=== PATIENT | female | born 1955 | race Caucasian/White ===

== ENCOUNTER → 2017-09-24 09:58 | Outpatient (CLI) | payer OTHER, SELFPAY ==
--- NOTE | 2017-09-24 | DI.NM.S_ITS ---
PROCEDURE: NM PUL VENT AND PERFUSION RADIOPHARMACEUTICAL: 37.4 mCi Tc-99m DTPA aerosol by inhalation and 9.7 mCi Tc-99m MAA intravenously. INDICATIONS: PULMONARY EMBOLISM TECHNIQUE: Ventilation images were obtained first with Tc-99m DTPA aerosol. Subsequently, perfusion images were acquired after intravenous injection of Tc-99m MAA. Anterior, posterior, LAURA, GENARO, RPO, LPO, left and right lateral views were obtained. COMPARISON: [facility], CR, XR CHEST 2V, 09/24/2017, 10:06. FINDINGS: Large mismatched perfusion defects noted in the posterior basal segment of the right lower lobe and the superior segment of the left lower lobe. Matched perfusion defect noted in the lateral segment of the right middle lobe.. IMPRESSION: Probability for pulmonary embolus as high. Dictated by: Jigna Charles MD, PhD on 09/24/2017 at 15:28 Approved by: Jigna Charles MD, PhD on 09/24/2017 at 15:31
--- NOTE | 2017-09-24 | DI.RAD.S_ITS ---
PROCEDURE: XR CHEST 2V INDICATIONS: chest pains TECHNIQUE: 2 views of the chest were acquired. COMPARISON: None. FINDINGS: Surgical changes and devices: None. Lungs and pleura: No pleural effusions or pneumothorax. Lungs are clear. Mediastinum: Mediastinal contours are normal. Heart size is normal. Bones and chest wall: No suspicious bony abnormalities. Soft tissues appear unremarkable. IMPRESSION: No acute disease. Dictated by: Shaka Fiore M.D. on 09/24/2017 at 12:24 Approved by: Shaka Fiore M.D. on 09/24/2017 at 12:25
== END ==
PROVIDERS: PCP Family Medicine; Visit Provider Internal Medicine Pulmonary Disease
DX: I26.99 Other pulmonary embolism without acute cor pulmonale (principal); R07.9 Chest pain, unspecified
CPT/HCPCS: 71046; 78582; A9539; A9540

== ENCOUNTER → 2018-01-21 11:35 | Outpatient (CLI) | payer OTHER, SELFPAY ==
--- NOTE | 2018-01-21 | DI.CT.S_ITS ---
PROCEDURE: CT CHEST WO CON INDICATIONS: Chronic pulmonary embolism TECHNIQUE: Noncontrast 5 mm thick sections acquired from the pulmonary apices to the posterior costophrenic angles. 7 mm thick coronal and sagittal MIP reformats were then acquired. For radiation dose reduction, the following was used: automated exposure control, adjustment of mA and/or kV according to patient size. COMPARISON: [facility], CT, CT ANGIO CHEST PE, 06/13/2017, 21:47. [facility], [place], [place] PUL VENT AND PERFUSION, 09/24/2017, 11:30. FINDINGS: Image quality: Excellent. Lungs and pleura: No acute air space opacities. No pleural effusions or pneumothorax. Central and peripheral airways are patent and normal in caliber. Lungs are hyperinflated. Mediastinum: Heart size is normal. No pericardial effusion. No mediastinal adenopathy by size criteria. Thoracic aorta and central pulmonary arteries are normal in size. Esophagus is normal in caliber. No hiatal hernia. Bones and chest wall: No suspicious bony lesions. No vertebral body compression fractures. No axillary or supraclavicular adenopathy by size criteria. Thyroid gland demonstrates a low attenuation focus within the right lobe not included within the [id number] on prior exam. Abdomen: Visualized upper abdominal solid organs and bowel loops appear normal in the absence of contrast. IMPRESSION: 1. Hyperinflation suggestive of COPD. Lungs are clear. 2. Subcentimeter low-attenuation right thyroid focus, not included within the [id number] on prior exam. It is considered indeterminate on the basis of this exam and further evaluation of thyroid ultrasound may be obtained as indicated. 3. Presence of chronic pulmonary embolism is suboptimally evaluated on this exam secondary to lack of intravenous contrast. Dictated by: Montse Hernandez M.D. on 01/21/2018 at 13:26 Approved by: Montse Hernandez M.D. on 01/21/2018 at 13:32
--- NOTE | 2018-01-21 | DI.ECHO.S_ITS ---
[place]---------+ [facility] +---------+ : : [address] : : : : [id number] : : : : Phone: [phone] Echocardiogram Report + + :Name: SONNY VIEYRA Study Date: 01/21/2018 Height: 69.5 in: :[facility] Weight: 180 lb : : Gender: Female BSA: 2.0 m2 : :: 1955 Age: 63 yrs BP: 112/72 mmHg: :Reason For Study: Dyspnea, Chronic pulmonary emboli : : Performed By: Carlota Shetty : :Referring: ZHOU SIGALA : + + Interpretation Summary 1. Normal left ventricular size, wall thickness and systolic function with an estimated EF of 60-65% 2. Normal right ventricular size and systolic function. The estimated RVSP is 23 mm Hg. The estimated right atrial pressure is low. 3. No evidence for significant valvular pathology. When compared with the previous study, the estimated right atrial pressure is now low. Procedure: A two-dimensional transthoracic echocardiogram with color flow and Doppler was performed. The study quality was technically adequate. Comparison is made with the echocardiogram of 06/14/2017. The patient was in normal sinus rhythm during the exam. Left Ventricle: The left ventricle is normal in size. There is normal left ventricular wall thickness. There is no ventricular septal defect visualized. The ejection fraction is estimated to be 60-65%. There are no focal wall motion abnormalities. Diastolic parameters suggest probable normal left ventricular diastolic function and normal filling pressures. Right Ventricle: The right ventricle is normal in size and function. Atria: Both atria are normal in size. There is no Doppler evidence for an interatrial shunt. Mitral Valve: There is mild mitral annular calcification. There is trace mitral regurgitation. Aortic Valve: The aortic valve is trileaflet. The aortic valve opens well. There is trace aortic regurgitation. Tricuspid Valve: The tricuspid valve leaflets are thin and pliable. There is a trace or physiologic amount of tricuspid regurgitation. The right ventricular systolic pressure is estimated to be at least 23 mmHg based on an estimated right atrial pressure of 3 mm Hg. Pulmonic Valve: The pulmonic valve is not well visualized. Great Vessels: The aortic root is normal size. The ascending aorta is normal in size. The aortic arch is normal in size. The IVC is of normal diameter and collapses greater than 50% with a sniff. This suggests a low right atrial pressure of 3 mm Hg. Pericardium/ Pleura There is no pericardial effusion. MMode/2D Measurements & Calculations LVIDd: 4.5 cm LVOT diam: 2.0 cm LVIDs: 2.9 cm Ao root diam: 3.0 cm FS: 36.7 % Aortic Jxn: 2.5 cm EPSS: 0.42 cm asc Aorta Diam: 3.2 cm IVSd: 0.75 cm Ao Arch Diam (Prox Trans): 2.8 cm LVPWd: 1.0 cm LV contreras. diameter/BSA (cm/m^2): 2.3 LV sys. diameter/BSA (cm/m^2): 1.4 LA A2 area: 17.1 cm2 RA long axis: 4.5 cm LA A4 area: 16.6 cm2 RA area: 13.9 cm2 LA length (vol): 5.1 cm RA vol: 36.0 ml LA vol: 47.9 ml RA : 18.1 ml/m2 LA vol index: 24.1 ml/m2 IVC diam: 1.9 cm RVD1 (basal): 3.4 cm RVD2 (mid): 2.4 cm TAPSE: 2.3 cm Doppler Measurements & Calculations Ao V2 max: 150.6 cm/sec LVOT Max Burt: 86.5 cm/sec Ao V2 mean: 101.3 cm/sec LV V1 max P.0 mmHg Ao max P.1 mmHg LV V1 VTI: 21.7 cm Ao mean P.6 mmHg VALENTINA(I,D): 2.3 cm2 Ao V2 VTI: 28.5 cm VALENTINA(V,D): 1.8 cm2 sev ratio: 0.76 VALENTINA indexed to BSA (cm^2/m^2): 1.2 MV E max burt: 71.0 cm/sec TR max burt: 223.0 cm/sec MV A max burt: 55.6 cm/sec TR max P.9 mmHg MV E/A: 1.3 PA V2 max: 55.3 cm/sec Med Peak E' Burt: 7.3 cm/sec PA V2 mean: 37.1 cm/sec E/E' med: 9.8 PA mean P.65 mmHg Lat Peak E' Burt: 6.5 cm/sec PA Accel Time: 0.15 sec E/E' lat: 10.9 E/e' average: 10.3 MV dec time: 0.19 sec MV P1/2t: 56.1 msec MV P1/2t max burt: 71.0 cm/sec MVA(P1/2t): 3.9 cm2 Reading Physician:DIONICIO
[2018-01-21 12:26] LABS: B Type Natriuretic Peptide < 100.0 (<100)
== END ==
PROVIDERS: PCP Family Medicine; Visit Provider Internal Medicine Pulmonary Disease
DX: I27.82 Chronic pulmonary embolism (principal); R06.00 Dyspnea, unspecified
CPT/HCPCS: 36415; 71250; 83880; 93306

== ENCOUNTER 2021-02-11 18:48 | Emergency (ER) | payer OTHER, SELFPAY ==
[2021-02-11 18:54] VITALS: BP 139/79; PULSE 75; RESP 18; TEMP 36.4; O2SAT 99
--- NOTE | 2021-02-11 18:54 | DI.RAD.S_ITS ---
PROCEDURE: XR CHEST 1V INDICATIONS: chest pain TECHNIQUE: One view of the chest was acquired. COMPARISON: [facility], CR, XR CHEST 2V, 09/24/2017, 10:06. FINDINGS: Surgical changes and devices: None. Lungs and pleura: Lungs are clear. No pleural effusions or pneumothorax. Mediastinum: Mediastinal contours appear normal. Heart size is mildly enlarged. Bones and chest wall: No suspicious bony lesions. Overlying soft tissues appear unremarkable. IMPRESSION: No acute cardiopulmonary pathology. Dictated by: Cristian Gann M.D. on 02/11/2021 at 19:41 Approved by: Cristian Gann M.D. on 02/11/2021 at 19:41
--- NOTE | 2021-02-11 19:15 | ED_ITS ---
HPI - Chest Pain General Chief Complaint: Chest Pain Stated Complaint: DR ROJO, chest+body pain, tired, SOB, Nausea Time Seen by Provider: 02/11/21 19:01 Source: patient Mode of arrival: Ambulatory History of Present Illness HPI narrative: 66-year-old woman with complicated cardiac history possible pericarditis diagnosis let us month and followed by Dr. Clemens, cardiology. Chronic thrombotic embolary pulmonary hypertension followed by Dr. Landis at the [facility] she presents feeling generally unwell and getting worse. She complains of right-sided chest pain that started at midnight last night it radiates through to her back and causes her throat to be tight. It is positional. She has had some nausea and dizziness for the last couple of days. She has a dry cough that she has attributed more to the pericarditis some pulmonary hypertension than infection. She denies any fevers but notes that she has but somewhat chilled. She feels better if she sitting upright. No vomiting, diarrhea, abdominal pain, orthopnea, lower extremity edema. Related Data Home Medications Medication Instructions Recorded Confirmed amlodipine 5 mg tablet 5 mg PO BID 11/27/20 11/27/20 turmeric root extract 500 mg 500 mg PO DAILY 12/20/20 12/20/20 capsule Previous Rx's Medication Instructions Recorded hydrochlorothiazide 12.5 mg tablet 12.5 mg PO DAILY #90 tab 12/12/20 sertraline 100 mg tablet 100 mg PO DAILY #90 tab 01/23/21 dabigatran etexilate 150 mg 150 mg PO BID #60 cap 02/06/21 capsule (Pradaxa) lovastatin 40 mg tablet 40 mg PO DAILY #30 tab NS 02/06/21 ondansetron 4 mg disintegrating 4 mg PO Q8H PRN #15 tab 02/11/21 tablet oxycodone-acetaminophen 5 mg-325 1 tab PO Q6H PRN #15 tab 02/11/21 mg tablet potassium chloride 20 mEq 20 meq PO DAILY #7 tab 02/11/21 tablet,extended release Allergies Allergy/AdvReac Type Severity Reaction Status Date / Time codeine Allergy Intermediate SKIN:ITCHING, Verified 02/11/21 21:00 OTHER, NAUSE AND VOMITING latex Allergy Unknown TAPE/SKIN Verified 02/11/21 21:00 BLISTER, SKIN REDNESS GLUTEN MEAL Allergy Severe PAIN,DIARRHEA, Uncoded 02/11/21 21:00 NAUSEA & VOMITING (CELIAC) TETANUS ANTITOXIN Allergy Severe SWELLING Uncoded 02/11/21 21:00 TETANUS TOXOIDS AdvReac Severe Anaphylaxis Uncoded 02/11/21 21:00 Review of Systems Review of Systems Narrative: Remainder of complete review of systems is otherwise unremarkable except for that included in the HPI. Patient History Medical History (Updated 02/11/21 @ 21:49 by Stacey Grijalva MD) Abnormal chest xray Anxiety and depression Cervical cancer (~1983) Chronic thromboembolic pulmonary hypertension (~2017) Fever Gluten enteropathy H/O acute cholecystitis Human papilloma virus Kidney stones (~1978) Osteoarthritis Osteopenia Osteoporosis (~1999) Ovarian cyst Pain in right hip Painful menstrual periods Positive PPD (~1999) Pulmonary hypertension Shoulder pain Surgical History Anesthesia History of cholecystectomy History of mandibular surgery (~1984) History of shoulder surgery History of total hysterectomy (~1983) Family History Mother Breast cancer Colon cancer Hyperlipidemia Stroke History of heart disease Brother Hypertension Sister Diabetes mellitus Social History Smoking Status: Never smoker Smoking Status: Never smoker Exam Narrative Exam Narrative: General: Healthy appearing, in no acute distress. Able to give a complete and coherent history. Well-nourished well-developed HEENT: Moist mucous membranes, normal sclera with reactive pupils, Neck: No JVD, supple Respiratory: Lungs are clear to auscultation, no wheezing no rales no rhonchi. Full and symmetrical air movement. Does not the right-sided chest pain with deep inspiration. Chest: No specific tenderness lung costochondral margins Cardiac: Regular rate and rhythm no murmurs no bruits Abdomen: Soft, nontender, good bowel tones, no flank pain Skin: Warm and dry, no rashes Neurologic: Grossly neurologically intact with no obvious asymmetries or abnormalities Extremities: No trauma, well perfused Psych: Cooperative, appropriate insight and affect Initial Vital Signs Initial Vital Signs: Vital Signs Temperature 97.6 F 02/11/21 18:54 Pulse Rate 75 02/11/21 18:54 Respiratory Rate 18 02/11/21 18:54 Blood Pressure 139/79 11/01/21 18:54 Pulse Oximetry 99 02/11/21 18:54 Course Orders Ordered: ED Orders 02/11/21 18:54 XR chest 1V Stat EKG-12 Lead Stat 02/11/21 20:01 Complete Blood Count AUTO DIFF Stat Comprehensive Metabolic Panel Stat Lipase Stat Troponin & CK Cardiac Panel Stat Discontinued Medications Oxycodone/Acetaminophen (Oxycodone/Acetaminophen 5/325 Tablet) 1 tab PO NOW ONE Stop: 02/11/21 20:57 Last Admin: 02/11/21 21:01 Dose: 1 tab Documented by: BECCA Potassium Chloride (Potassium Chloride 20 Meq Tab) 40 meq PO NOW ONE Stop: 02/11/21 20:57 Last Admin: 02/11/21 21:02 Dose: 40 meq Documented by: BECCA Vital Signs Vital signs: Vital Signs - 8 hr 02/11/21 18:54 02/11/21 20:41 Temperature 97.6 F Pulse Rate 75 63 Respiratory Rate 18 Blood Pressure 139/79 125/77 Pulse Oximetry 99 96 MDM - Chest Pain Medical Records Data Medical records narrative: CT done on January 22 at [facility] showed no evidence of PE or other intrathoracic abnormalities Echocardiogram December 25 shows an ejection fraction of 65%, pulmonary artery pressure is 22 mm. She has a small pericardial effusion that has not changed from November 25, 2019 Lab Data Result diagrams: 02/11/21 20:01 02/11/21 20:01 Labs: Lab Results 02/11/21 02/11/21 Range/Units 20:01 20:01 WBC 6.0 (4.5-11.0) X10^3/uL RBC 4.36 (4.0-5.2) X10^6/uL Hgb 13.2 (12.0-16.0) g/dL Hct 38.7 (36-46) % MCV 88.7 (80-100) fL MCH 30.3 (26-34) PG MCHC 34.2 (30-36) % RDW 13.1 (11.6-14.8) % Plt Count 176 (150-400) X10^3/uL Neut % (Auto) 49.6 L (50-75) % Lymph % (Auto) 39.8 (25-40) % [place] % (Auto) 7.8 (3-14) % Eos % (Auto) 1.9 L (2-4) % Baso % (Auto) 0.9 (0-2) % Neut # (Auto) 3000 (8920-1026) /uL Lymph # (Auto) 2400 (9526-8191) /uL [place] # (Auto) 500 (0-900) /uL Eos # (Auto) 100 (0-450) /uL Baso # (Auto) 100 (0-100) /uL Sodium 138 (137-145) mmol/L Potassium 3.0 L (3.4-5.1) mmol/L Chloride 103 (98-107) mmol/L Carbon Dioxide 28 (22-32) mmol/L BUN 11 (7-17) mg/dL Creatinine 0.72 (0.52-1.04) mg/dL Estimated GFR > 60.0 (>60) mL/min BUN/Creatinine Ratio 15.3 (6-22) Glucose 94 (80-110) mg/dL Calcium 9.8 (8.4-10.2) mg/dL Total Bilirubin 0.6 (0.2-1.3) mg/dL AST 25 (14-36) IU/L ALT 22 (<35) IU/L Alkaline Phosphatase 58 (38-126) U/L Total Creatine Kinase 67 (30-135) U/L CK-MB (CK-2) TNP CK-MB (CK-2) Rel Index TNP Troponin I < 0.012 (0.01-0.034) ng/mL Total Protein 7.4 (6.3-8.2) g/dL Albumin 4.5 (3.5-5.0) g/dL Globulin 2.9 (1.7-4.1) g/dL Albumin/Globulin Ratio 1.6 (1.0-2.8) Lipase 52 (23-300) U/L Imaging Data Chest x-ray: Radiologist's Impression: FINDINGS:? ? Surgical changes and devices:? None.? ? Lungs and pleura:? Lungs are clear.? No pleural effusions or pneumothorax.? ? Mediastinum:? Mediastinal contours appear normal.? Heart size is mildly enlarged.? ? Bones and chest wall:? No suspicious bony lesions.? Overlying soft tissues appear unremarkable.? ? IMPRESSION:? No acute cardiopulmonary pathology. ? ? Dictated by: Cristian Gann M.D. on 02/11/2021 at 19:41? ?? ECG Data Interpretation: Sinus rhythm at a rate of 58 Normal axis, normal intervals No acute ischemic changes, no global ST elevation consistent with acute pericarditis MDM Narrative Medical decision making narrative: 66-year-old woman with a history of mild pericarditis and pulmonary hypertension with chronic pulmonary emboli anticoagulated presents with increasing malaise over the last number of days and right-sided chest pain radiating through to her back worse with deep breathing but painful enough she was having trouble sleeping.? She is more comfortable sitting up.? She is in no acute distress well in the emergency department.? Labs show only potassium low at 3.0.? No evidence of acute coronary syndrome.? Chest x-ray is unremarkable.? She does not have any signs or symptoms to suggest aortic dissection.? There is no evidence of pneumothorax or developing pneumonia and clinically no evidence for a recurrent pulmonary emboli. She is given a tablet of Percocet see if this helps control the pain(can not use nonsteroidals and she is already on colchicine) and potassium.? Will re-evaluate On re-evaluation the Percocet has definitely made a difference. At this time I do not suggest life-threatening abnormalities as described above. Will send her home with prescriptions for potassium to take for a week, Percocet to use over the next week intermittently to help with the pleuritic chest pain and Zofran should she have any persistent nausea. Encouraged her to return should she have any new or worsening symptoms Discharge Plan Departure Patient Disposition: Home Clinical Impression: Chest pain, pleuritic, Acute hypokalemia Instructions: Pleurisy Activity Restrictions/Additional Instructions: Thank you for coming in today This so hard to know when to call 911 [place] Today, blood work and clinical exam did not show any evidence for acute coronary syndrome or heart attack, a recurrent pulmonary embolism, a collapsed lung, d eveloping pneumonia or other life-threatening abnormalities. I suspect that this is pleuritic type chest pain and would expect that it will increase in the 1st 48 hours and then gradually resolve over the next week. It is okay to use Percocet and or Tylenol as needed for the pain. If you do choose to use Percocet please note that it is a narcotic, it can be addicting and it will always make you constipated. Your potassium level was also low at 3.0. I am going to suggest that you take potassium supplementations for the next week and when you follow-up with your doctor you will need to recheck potassium levels. This may be part of the muscle weakness that you are experiencing I have also given you a prescription for Zofran to help with any nausea should it occur I do not have an explanation for the acute pleuritic pain today. I do think continuing your outpatient workup looking for other rheumatologic diagnoses like lupus or rheumatoid arthritis make sense. I wish you the best in finding answers Prescriptions: New oxycodone-acetaminophen 5-325 mg tablet 1 tab PO Q6H PRN (Reason: pain) Qty: 15 RF: 0 ondansetron 4 mg tablet,disintegrating 4 mg PO Q8H PRN (Reason: nausea and vomiting) Qty: 15 RF: 0 potassium chloride 20 mEq tablet extended release 20 meq PO DAILY Qty: 7 RF: 0 No Action hydrochlorothiazide 12.5 mg tablet 12.5 mg PO DAILY Qty: 90 RF: 0 sertraline 100 mg tablet 100 mg PO DAILY Qty: 90 RF: 0 lovastatin 40 mg tablet 40 mg PO DAILY Qty: 30 RF: 1 Pradaxa 150 mg capsule 150 mg PO BID Qty: 60 RF: 1 Hold Instructions: Waiting for authorization turmeric root extract 500 mg capsule 500 mg PO DAILY RF: 0 amlodipine 5 mg tablet 5 mg PO BID RF: 0 Referrals: Eduardo Dobson DO [Primary Care Provider] -
--- NOTE | 2021-02-11 19:46 | PC.NURSE ---
IV start attempted by [address] Grijalva aware.
[2021-02-11 20:09] LABS: Add Manual Diff / Slide Review NO; Basophils Absolute Auto 100 /uL (0-100); Basophils Percent Auto 0.9 % (0-2); Eosinophils Absolute Auto 100 /uL (0-450); Eosinophils Percent Auto 1.9 % (2-4); Hematocrit 38.7 % (36-46); Hemoglobin 13.2 g/dL (12.0-16.0); Lymphocytes Absolute Auto 2400 /uL (1100-4500); Lymphocytes Percent Auto 39.8 % (25-40); Mean Corpuscular HGB Conc 34.2 % (30-36); Mean Corpuscular Hemoglobin 30.3 PG (26-34); Mean Corpuscular Volume 88.7 fL (80-100); Monocytes Absolute Auto 500 /uL (0-900); Monocytes Percent Auto 7.8 % (3-14); Neutrophils Absolute Auto 3000 /uL (1500-7000); Neutrophils Percent Auto 49.6 % (50-75); Platelet Count 176 X10^3/uL (150-400); Red Blood Cell Count 4.36 X10^6/uL (4.0-5.2); Red Cell Distribution Width 13.1 % (11.6-14.8)
[2021-02-11 20:22] LABS: Alanine Aminotransferase 22 IU/L (<35); Albumin 4.5 g/dL (3.5-5.0); Albumin Globulin Ratio 1.6 (1.0-2.8); Alkaline Phosphatase 58 U/L (38-126); Aspartate Aminotransferase 25 IU/L (14-36); BUN Creatinine Ratio 15.3 (6-22); Bilirubin Total 0.6 mg/dL (0.2-1.3); Blood Urea Nitrogen 11 mg/dL (7-17); Calcium 9.8 mg/dL (8.4-10.2); Carbon Dioxide 28 mmol/L (22-32); Chloride 103 mmol/L (98-107); Creatine Kinase 67 U/L (30-135); Estimated Glomerular Filt Rate > 60.0 mL/min (>60); Globulin 2.9 g/dL (1.7-4.1); Glucose 94 mg/dL (80-110); HEMOLYSIS < 15 (0-50); Lipase 52 U/L (23-300); Sodium 138 mmol/L (137-145); Total Protein 7.4 g/dL (6.3-8.2)
[2021-02-11 20:33] LABS: Troponin I < 0.012 ng/mL (0.01-0.034)
[2021-02-11 20:41] VITALS: BP 125/77; PULSE 63; O2SAT 96
[2021-02-11] MEDS: OXYCODONE/ACETAMINOPHEN 5/325 TABLET 1 TAB PO (21:01)
[2021-02-11] MEDS: POTASSIUM CHLORIDE 20 MEQ TAB 40 MEQ PO (21:02)
[2021-02-11 21:48] VITALS: BP 127/65; PULSE 61; O2SAT 98
[2021-02-11] MEDS: OXYCODONE/APAP 5/325 PREPACK 1 BOTTLE MISC (21:57)
[2021-02-11] MEDS: ONDANSETRON 4 MG ODT PREPACK 1 BOTTLE MISC (21:57)
== END 2021-02-11 22:03 | disposition home or self-care (01) ==
PROVIDERS: Emergency Provider Emergency Medicine; PCP Family Medicine
DX: R07.81 Pleurodynia (principal); E87.6 Hypokalemia; R07.9 Chest pain, unspecified
CPT/HCPCS: 71045; 80053; 82550; 83690; 84484; 85025; 93005; 99284

== ENCOUNTER → 2021-09-18 11:07 | Outpatient (CLI) | payer OTHER, SELFPAY ==
[2021-09-18 18:55] LABS: Add Manual Diff / Slide Review NO; Basophils Absolute Auto 0 /uL (0-100); Basophils Percent Auto 0.6 % (0-2); Eosinophils Absolute Auto 100 /uL (0-450); Eosinophils Percent Auto 2.6 % (2-4); Hematocrit 42.2 % (36-46); Hemoglobin 14.1 g/dL (12.0-16.0); Lymphocytes Absolute Auto 2100 /uL (1100-4500); Lymphocytes Percent Auto 42.4 % (25-40); Mean Corpuscular HGB Conc 33.4 % (30-36); Mean Corpuscular Hemoglobin 29.6 PG (26-34); Mean Corpuscular Volume 88.7 fL (80-100); Monocytes Absolute Auto 300 /uL (0-900); Monocytes Percent Auto 5.5 % (3-14); Neutrophils Absolute Auto 2400 /uL (1500-7000); Neutrophils Percent Auto 48.9 % (50-75); Platelet Count 183 X10^3/uL (150-400); Red Blood Cell Count 4.76 X10^6/uL (4.0-5.2); Red Cell Distribution Width 13.1 % (11.6-14.8)
[2021-09-18 19:05] LABS: Alanine Aminotransferase 19 IU/L (<35); Albumin 4.7 g/dL (3.5-5.0); Albumin Globulin Ratio 1.7 (1.0-2.8); Alkaline Phosphatase 65 U/L (38-126); Aspartate Aminotransferase 25 IU/L (14-36); BUN Creatinine Ratio 16.3 (6-22); Bilirubin Total 0.5 mg/dL (0.2-1.3); Blood Urea Nitrogen 15 mg/dL (7-17); C-Reactive Protein Quant < 0.5 mg/dL (<1.0); Calcium 9.6 mg/dL (8.4-10.2); Carbon Dioxide 29 mmol/L (22-32); Chloride 106 mmol/L (98-107); Creatine Kinase 55 U/L (30-135); Estimated Glomerular Filt Rate > 60 mL/min (>60); Globulin 2.8 g/dL (1.7-4.1); Glucose 110 mg/dL (80-110); HEMOLYSIS < 15 (0-50); Potassium 3.4 mmol/L (3.4-5.1); Sodium 142 mmol/L (137-145); Total Protein 7.5 g/dL (6.3-8.2)
[2021-09-18 19:42] LABS: Erythrocyte Sedimentation Rate 6 MM/HR (0-20)
== END ==
PROVIDERS: PCP Family Medicine; Visit Provider Internal Medicine Rheumatology
DX: G89.29 Other chronic pain (principal); I31.9 Disease of pericardium, unspecified; M25.561 Pain in right knee; M25.562 Pain in left knee
CPT/HCPCS: 80053; 82550; 85025; 85651; 86140

== ENCOUNTER → 2021-09-30 12:15 | Outpatient (CLI) | payer OTHER, SELFPAY ==
[2021-09-30 20:34] LABS: Folate 8.3 ng/mL (2.76-20.0); Vitamin B12 514 pg/mL (239-931)
[2021-10-02 13:50] LABS: Albumin 3.9 g/dL (2.9-4.4); Alpha 1 Globulin 0.2 g/dL (0.0-0.4); Alpha 2 Globulin 0.7 g/dL (0.4-1.0); Beta 1 Globulin 1.2 g/dL (0.7-1.3); Gamma Globulin 1.2 g/dL (0.4-1.8); Protein, Total 7.1 g/dL (6.0-8.5)
[2021-10-07 18:16] LABS: HLA B27 Negative (.)
== END ==
PROVIDERS: PCP Internal Medicine Rheumatology; Visit Provider Internal Medicine Rheumatology
DX: G62.9 Polyneuropathy, unspecified (principal); G89.29 Other chronic pain; I31.9 Disease of pericardium, unspecified; M54.50 Low back pain, unspecified; M79.7 Fibromyalgia; R53.83 Other fatigue
CPT/HCPCS: 81374; 82607; 82746; 84155; 84165

== ENCOUNTER → 2022-04-29 17:09 | Outpatient (CLI) | payer MEDICARE, SELFPAY ==
--- NOTE | 2022-04-29 17:15 | DI.MRI.S_ITS ---
PROCEDURE: MR CERVICAL SPINE WO CON INDICATIONS: BILAT HAND WEAKNESS TECHNIQUE: Noncontrast sagittal T1 spin echo and T2 fast spin echo, sagittal STIR, foraminal oblique sagittal T2 fast spin echo, and axial gradient echo or T2 fast spin echo through the cervical spine. COMPARISON: None. FINDINGS: Image quality: Excellent. Alignment and Curvature: There is normal bony alignment. Bone Marrow: Marrow demonstrates normal overall signal. Spinal Cord: Visualized spinal cord has normal size and signal. No cerebellar tonsillar herniation. Regional Soft Tissues: No paravertebral masses. Prevertebral soft tissues are normal in thickness. C2-C3: No spinal canal or neural foraminal stenosis. C3-C4: No spinal canal stenosis. Mild right greater than left neural foraminal narrowing due to facet and uncovertebral hypertrophy. C4-C5: No spinal canal stenosis. Mild bilateral neural foraminal narrowing due to facet and uncovertebral hypertrophy. C5-C6: Mild spinal canal stenosis due to posterior disc osteophyte complex flattening the ventral cord. Moderate left greater than right neural foraminal narrowing. C6-C7: No spinal canal stenosis. Moderate left and mild right neural foraminal narrowing due to facet and uncovertebral hypertrophy. C7-T1: No spinal canal or neural foraminal stenosis. IMPRESSION: Multilevel multifactorial degenerative changes most pronounced at C5-C6 and C6-C7. Dictated by: Deion Tracy M.D. on 04/30/2022 at 9:29 Approved by: Deion Tracy M.D. on 04/30/2022 at 9:40
== END ==
PROVIDERS: PCP Family Medicine; Referring Provider Family Medicine; Visit Provider Family Medicine
DX: M47.812 Spondylosis without myelopathy or radiculopathy, cervical region (principal); R29.898 Other symptoms and signs involving the musculoskeletal system
CPT/HCPCS: 72141

== ENCOUNTER → 2022-06-17 11:40 | Outpatient (CLI) | payer MEDICARE, SELFPAY ==
--- NOTE | 2022-06-17 11:43 | DI.MRI.S_ITS ---
PROCEDURE: MR LUMBAR SPINE WO CON INDICATIONS: LUMBAR RADICULOPATHY TECHNIQUE: Noncontrast sagittal T1 spin echo and T2 fast echo, sagittal STIR, and T2 fast spin echo through the lumbar spine. In cases with scoliosis, additional coronal T2 fast spin echo may be performed. COMPARISON: [facility], , ABDOMEN 2 VIEW, 07/17/2017, 11:29. FINDINGS: Image quality: Excellent. Alignment and Curvature: 5 lumbar type vertebral bodies are present by plain film. Bone Marrow: Marrow is of normal overall signal. No acute vertebral body compression fractures. Minimal reactive signal throughout the endplates of the lumbar and lower thoracic spine. Spinal Cord: Conus medullaris terminates at the lower L1 level. Visualized cord demonstrates normal signal and size. Paraspinous Soft Tissues: No paravertebral masses. T12-L1: Normal appearance. L1-L2: Normal appearance. L2-L3: Normal appearance. L3-L4: Mild disc desiccation and diffuse disc bulge. Mild ligamentum flavum hypertrophy. Mild canal stenosis. Mild bilateral foraminal stenosis. L4-L5: Mild disc desiccation and diffuse disc bulge. Mild bilateral facet hypertrophy. Mild canal stenosis. Mild bilateral foraminal stenosis. L5-S1: Moderate disc height loss and desiccation. Mild diffuse disc bulge. Mild bilateral facet hypertrophy. No significant canal, or foraminal stenosis. IMPRESSION: 1. Multilevel degenerative disc and facet disease, as well as ligamentum flavum hypertrophy and epidural lipomatosis. 2. Mild multilevel canal and foraminal stenoses. No neural impingement. Dictated by: Marciano Hale M.D. on 06/17/2022 at 14:43 Transcribed by: JUDSON on 06/17/2022 at 14:46 Approved by: Marciano Hale M.D. on 06/17/2022 at 16:44
== END ==
PROVIDERS: PCP Family Medicine; Referring Provider Neurological Surgery; Visit Provider Neurological Surgery
DX: M51.16 Intervertebral disc disorders with radiculopathy, lumbar region (principal); M48.061 Spinal stenosis, lumbar region without neurogenic claudication; M51.17 Intervertebral disc disorders with radiculopathy, lumbosacral region
CPT/HCPCS: 72148

== ENCOUNTER → 2022-11-27 13:57 | Outpatient (CLI) | payer MEDICARE, SELFPAY ==
--- NOTE | 2022-11-27 | DI.RAD.S_ITS ---
PROCEDURE: XR CERVICAL SPINE 2V OR 3V INDICATIONS: RADICULOPATHY, CERVICAL REGION TECHNIQUE: 3 view(s) of the cervical spine were acquired. COMPARISON: None. FINDINGS: Bones: No fractures or dislocations to the T1 level. The lateral masses of C1 appear intact on the odontoid view. No suspicious bony lesions. Expected appearance of cervical fusion hardware, status post ACDF at C5-C6 and C6-C7. No evidence of hardware failure or loosening. Soft tissues: No prevertebral soft tissue swelling. IMPRESSION: Expected appearance of cervical orthopedic fusion hardware. Dictated by: Toni Torres M.D. on 11/27/2022 at 15:52 Approved by: Toni Torres M.D. on 11/27/2022 at 15:53
== END ==
PROVIDERS: PCP Family Medicine; Referring Provider Neurological Surgery; Visit Provider Neurological Surgery
DX: M47.22 Other spondylosis with radiculopathy, cervical region (principal); Z98.1 Arthrodesis status
CPT/HCPCS: 72040

== ENCOUNTER → 2024-07-06 13:55 | Outpatient (CLI) | payer OTHER, SELFPAY ==
--- NOTE | 2024-07-06 13:56 | DI.ECHO.S_ITS ---
[facility] : : [id number] : : [place] : : [id number] : : Phone: [phone] Echocardiogram Report + + :Name: SONNY VIEYRA Study Date: 07/06/2024 Height: 69.5 in: :[facility] ReadingLocation: Weight: 198 lb : : Gender: Female BSA: 2.1 m2 : :: 1955 Age: 69 yrs BP: 123/80 mmHg: :Reason For Study: DYSPNEA ON EXERTION : :Ordering Physician: ELLA, : :ANIYA Jin Performed By: Luba Hernández : :Referring: ANIYA JARAMILLO : + + Interpretation Summary The ejection fraction is estimated to be 55-60%. Diastolic parameters suggest probable normal left ventricular diastolic function and normal filling pressures. The right ventricle is normal in size and function. No valvular abnormalities. Pulmonary artery pressures cannot be estimated because of the lack of a measurable TR jet velocity but the IVC suggests a CVP of around 3 mmHg. Compared to the prior study 01/21/2018, no significant change. Procedure: A two-dimensional transthoracic echocardiogram with color flow and Doppler was performed. The study quality was technically adequate. Comparison is made with the echocardiogram of 01/21/2018. The patient was in sinus rhythm with heart rates between 65-70 bpm during the exam. Left Ventricle: The left ventricle is normal in size and wall thickness. The ejection fraction is estimated to be 55-60%. Diastolic parameters suggest probable normal left ventricular diastolic function and normal filling pressures. Right Ventricle: The right ventricle is normal in size and function. Atria: The left atrial size is normal. Right atrial size is normal. There is no Doppler evidence for an interatrial shunt. Mitral Valve: The mitral valve leaflets appear mildly thickened, but open well. There is mild mitral annular calcification. There is no mitral regurgitation noted. Aortic Valve: The aortic valve opens well. There is no aortic valve stenosis. No aortic regurgitation is present. Tricuspid Valve: The tricuspid valve leaflets are thin and pliable. There is a trace or physiologic amount of tricuspid regurgitation. Pulmonary artery pressures cannot be estimated because of the lack of a measurable TR jet velocity but the IVC suggests a CVP of around 3 mmHg. Pulmonic Valve: The pulmonic valve is not well visualized. There is no pulmonic valvular regurgitation. Great Vessels: The aortic root is normal size. The dimensions of the ascending aorta are normal. The IVC is of normal diameter and collapses greater than 50% with a sniff. This suggests a low right atrial pressure of 3 mm Hg. Pericardium/ Pleura There is no pericardial effusion. There is no pleural effusion. MMode/2D Measurements & Calculations LVIDd: 4.6 cm LVOT diam: 1.9 cm LVIDs: 2.9 cm Ao root diam: 2.7 cm FS: 36.8 % asc Aorta Diam: 2.9 cm EPSS: 0.66 cm Ao Arch Diam (Prox Trans): 3.0 cm IVSd: 0.84 cm LVPWd: 0.84 cm LV contreras. diameter/BSA (cm/m^2): 2.2 LV sys. diameter/BSA (cm/m^2): 1.4 LA A2 area: 17.8 cm2 RA long axis: 5.1 cm LA A4 area: 15.8 cm2 RA area: 15.2 cm2 LA length (vol): 5.2 cm RA vol: 38.2 ml LA vol: 45.5 ml RA : 18.5 ml/m2 LA vol index: 22.0 ml/m2 IVC diam: 1.8 cm RVD1 (basal): 3.4 cm TAPSE: 1.8 cm Doppler Measurements & Calculations Ao V2 max: 125.9 cm/sec LVOT Max Burt: 93.0 cm/sec Ao V2 mean: 88.7 cm/sec LV V1 max P.5 mmHg Ao max P.3 mmHg LV V1 VTI: 17.8 cm Ao mean P.5 mmHg VALENTINA(I,D): 2.1 cm2 Ao V2 VTI: 25.1 cm VALENTINA(V,D): 2.1 cm2 sev ratio: 0.71 VALENTINA indexed to BSA (cm^2/m^2): 0.99 MV E max burt: 40.1 cm/sec PA V2 max: 75.9 cm/sec MV A max burt: 67.6 cm/sec PA V2 mean: 52.2 cm/sec MV E/A: 0.59 PA mean P.2 mmHg Med Peak E' Burt: 4.5 cm/sec PA pr(Accel): 35.3 mmHg E/E' med: 8.9 Lat Peak E' Burt: 7.0 cm/sec E/E' lat: 5.8 E/e' average: 7.4 MV dec time: 0.31 sec SV(LVOT): 51.4 ml Reading Physician:[id number] PM
== END ==
PROVIDERS: PCP Family Medicine; Referring Provider Family Medicine; Visit Provider Family Medicine
DX: R06.09 Other forms of dyspnea (principal); I34.81 Nonrheumatic mitral (valve) annulus calcification
CPT/HCPCS: 93306